=== PATIENT | male | born 1970 | race Caucasian/White ===

== ENCOUNTER 2024-07-17 13:59 | Emergency (ER) | payer MEDICAID ==
[~2024-07-17] VITALS: Ht 162.6 cm; Wt 82.0 kg
[2024-07-17 14:01] VITALS: BP 177/95; PULSE 82; RESP 16; TEMP 97.5; O2SAT 98
[2024-07-17] MEDS: ACETAMINOPHEN 325MG TABLET PO ONE (18:30)
[2024-07-17] MEDS ORDERED: METH-653 MT (19:01)
== END 2024-07-17 19:49 | disposition home or self-care (01) ==
LOC: ER 13:59
DX: M54.2 Cervicalgia (principal); I10 Essential (primary) hypertension; V86.01XA Driver of ambulance or fire engine injured in traffic accident, initial encounter; Y93.89 Activity, other specified; Y92.89 Other specified places as the place of occurrence of the external cause; Y99.8 Other external cause status
CPT/HCPCS: 99284